=== PATIENT | female | born 1950 | race Caucasian/White ===

== ENCOUNTER → 2016-03-20 | Outpatient (CLI) | payer MEDICARE, OTHER ==
--- NOTE | 2016-03-20 11:43 | ECHOS ---
DATE OF SERVICE: 03/20/2016 AGE: 65Y SEX: F HT: 65 WT: 200 lbs. Protocol William: X Others: Stress Echo Stage: II Dur. of Exercise: 5 minutes *Heart Rate Blood Pressure *Rest: 82 Rest: 158/77 * *Max. Achieved: 138 Maximum BP: 197/38 85% PMHR: 131 100% PMHR: 154 *METS: 6.7 INDICATIONS: Dyspnea. MEDICATIONS: Aspirin. Baseline EKG revealed normal sinus rhythm without significant ST-T changes. Patient walked on standard William protocol for 5 minutes, achieved a maximal heart rate of 138 beats per minute, which is more than 85% of predicted maximum. She developed fatigue and shortness of breath, but did not have any angina. EKG revealed some baseline artifact, rare PVCs but there was no evidence of any ST segment changes to indicate ischemia. By EKG criteria, this is considered as a negative stress test with limited exercise capacity. Baseline echo images reveal normal wall motion and wall thickening of all segments. At peak exercise, there was good augmentation of left ventricular wall motion and wall thickening of all segments suggesting that there is no evidence of any stress-induced ischemia on this study. IMPRESSION: 1. Limited exercise capacity with a negative stress test by EKG criteria. 2. Normal stress echocardiogram.
== END | disposition home or self-care (01) ==
LOC: RADNMMAIN 09:23
PROVIDERS: ATTEND Family Medicine
DX: R06.00 Dyspnea, unspecified (principal)
CPT/HCPCS: 93017; 93350

== ENCOUNTER → 2016-03-22 | Outpatient (CLI) | payer MEDICARE, OTHER ==
--- NOTE | 2016-03-22 19:04 | CONS ---
DATE OF CONSULTATION: 03/22/2016 CONSULTATION/NEW PATIENT EVALUATION A 65-year-old lady, who has been evaluated to the [facility] for possible obstructive sleep apnea-hypopnea syndrome. HISTORY OF PRESENT ILLNESS/SLEEP-WAKE EVALUATION: SLEEP SCHEDULE: Patient's usual sleep schedule from around 9:00 to 11:00 p.m. to 7:00 to 8:00 a.m. FALLING ASLEEP: She does not have problems with falling asleep. She feels that her bed is uncomfortable sometimes, too hot. She may have pain in her body. She has TV set in bedroom. DURING SLEEP: She usually sleeps on the side or stomach position. She snores, has been told about episodes of stopped breathing during sleep. DURING THE DAY/WAKE STATE: She wakes up from sleep up to 6 times with choking, nocturia, dry mouth, grinding teeth and episodes of palpitations, heartburn, restless leg, gasping for air. In the morning she wakes up tired, has difficulties to pay attention, falling asleep during the day, has problems with memory, concentration, irritability, depression, anxiety, claustrophobia and sexual dysfunction. [place] Sleepiness Scale increased to 15. PAST MEDICAL HISTORY: Positive for pain in multiple joints, swelling of legs, acid reflux. PAST SURGICAL HISTORY: , cholecystectomy. MEDICATIONS: MiraLAX, Ex-Lax, vitamin D supplement, Biotin supplement, baby aspirin, ibuprofen, Restasis, Lasix, Prilosec. SOCIAL HISTORY: Positive for smoking up to 3 packs a day for 40 years; quit about one year ago. Alcohol consumption none. REVIEW OF SYSTEMS: Positive for swelling of the legs, pain in the old joints, multiple awakenings from sleep, sleepiness during the day. According to the patient after she stopped smoking about one year ago she increased her weight around 60 pounds. No fevers. No double vision. No recent chest pain. No shortness of breath. No abdominal pain. No bleeding episodes. No blood in urine. No seizure episodes. FAMILY HISTORY: Arthritis, sinus headaches, lung problems, pneumonia, insomnia, acid reflux, ulcers, nasal polyps, restless legs. PHYSICAL EXAMINATION: GENERAL: During physical exam, a 65-year-old lady without distress. VITAL SIGNS: BP 132/71, HR 76, RR 16. Height 5 foot 4, weight 203, body mass index 34.8. Temperature 97.1. Oxygen saturation at room air 97%. HEENT: PERRLA, EOMI. Evaluation of oropharynx showed moderately low position of soft palate, short distance between soft palate and posterior pharyngeal wall, thin uvula, some restriction of nasal breathing. NECK: Supple. No JVD. Thyroid is not palpable. LUNGS: Clear to percussion and to auscultation. Good air exchange. No wheezing or rhonchi. HEART: S1, S2 regular. No murmurs, gallops or rubs. ABDOMEN: Soft and nontender. Bowel sounds are present. No organomegaly appreciated. EXTREMITIES: 1+ bilateral ankle edema, painful during palpation. Hands, also some ulnar deviation of fingers. SPOT REMOVER: Awake, alert, and oriented x3. Cranial nerves 2 to 7 intact. There is no fasciculation or atrophy noted. No focal deficits observed. IMPRESSION: 1. Snoring, witnessed episodes of stopped breathing during this sleep, multiple awakenings from sleep, excessive daytime sleepiness, possible obstructive sleep apnea-hypopnea syndrome. 2. Obesity, body mass index 34.8. 3. Pain in the joints, some ulnar deviation, polyarthritis. 4. Swelling of the legs. 5. Acid reflux. 6. Status post cholecystectomy. 7. Status post section. 8. History of more than 100 packs-year smoking, possible chronic obstructive pulmonary disease. PLAN: 1. Polysomnography for evaluation of patient's breathing during sleep. 2. CPAP/BiPAP titration if sleep study confirms obstructive sleep apnea-hypopnea syndrome. 3. Preferable position during sleep on the side. 4. No driving if patient feels any sleepiness. Patient is aware of civil and criminal liability for unsafe driving. 5. I will see patient for follow-up visit to explain results of the testing and following plan. Thank you very much for referring this patient for consultation. Sincerely, Ari Torres MD, PhD, FAASM. Diplomat of [place], Sleep Medicine Board by [place] [place] [employer] Agricultural Research Technician of [facility] [place]
== END | disposition home or self-care (01) ==
CPT/HCPCS: 99211

== ENCOUNTER → 2016-04-12 | Outpatient (CLI) | payer MEDICARE, OTHER ==
[~2016-04-12] MED LIST: DENOSUMAB 60 MG/ML 1 ML SYRINGE SQ ONE
[2016-04-12 14:13] VITALS: BP 111/66; PULSE 78; RESP 20; TEMP 98.4
== END | disposition home or self-care (01) ==
LOC: PROCWHC3 13:29
PROVIDERS: ATTEND Family Medicine
DX: M81.0 Age-related osteoporosis without current pathological fracture (principal)
CPT/HCPCS: 96372; J0897

== ENCOUNTER → 2016-05-01 | Outpatient (CLI) | payer MEDICARE, OTHER ==
[2016-05-01 13:12] LABS: Bilirubin, Delta 0.2 mg/dL (0.0-0.2); Total Bilirubin 0.4 mg/dL (0.2-1.3); Total Protein 8.2 g/dL (6.3-8.2)
[2016-05-02 16:53] LABS: Hepatits C Virus RNA, Quant <12 IU/mL (<12); LOG HCV IU/mL <1.08 (<1.08)
== END ==
LOC: LABWHC1 12:21
DX: B18.2 Chronic viral hepatitis C (principal)
CPT/HCPCS: 36415; 80076; 82105; 87522

== ENCOUNTER → 2016-06-21 | Outpatient (CLI) | payer MEDICARE, OTHER ==
--- NOTE | 2016-06-21 12:40 | PN ---
DATE OF SERVICE: 06/21/2016 A 65-year-old lady who has been followed in the Sleep Center for treatment of obstructive sleep apnea-hypopnea syndrome. Recently patient had a home sleep apnea test and CPAP titration and I discussed results of the sleep studies with patient in detail. She has moderate obstructive sleep apnea with apnea-hypopnea index of 14 and oxygen desaturation of 71% on full control with CPAP. I checked her CPAP unit. It demonstrated the patient using equipment 100% of the time more than 4 hours with average usage 7.2 hours. Pressure is 8 cm of water. Leak is up to 12 L/min, which is acceptable. Apnea-hypopnea index from reading of the machine is only 1.8. Patient indicated that her sleep is normalized with CPAP. She does not wake up as before. Sometimes patient has movements during the night, but she does not wake up from sleep relating to her leg movements. I indicated that because during titration, we found that patient had severe periodic limb movements with some arousals but we do not have information from her diagnostic night because it was done at home sleep apnea test. MEDICATIONS: MiraLax, ibuprofen, Restasis, Lasix, Prilosec. During physical exam, patient in no distress. BP 121/51, HR 62, RR 16. Weight 204. Temp 96.7. Oxygen saturation at room air 96%. Oropharynx extremely low position of soft palate. ABDOMEN: Obese. 1+ swelling of the ankles. NECK: Supple. No JVD, Thyroid is not palpable. LUNGS: Clear to percussion and to auscultation. Good air exchange. No wheezing or rhonchi. HEART: S1, S2 regular. No murmurs, gallops, or rubs. 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 Cranial nerves 2 to 7 intact. There is no fasciculation or atrophy noted. No focal deficits observed. IMPRESSION: 1. Obstructive sleep apnea-hypopnea syndrome on full control with CPAP. Patient demonstrated 100% compliance with treatment, benefiting from treatment. 2. Severe periodic limb movements during titration, but presently patient does not wake up from sleep with relationship to leg movements. 3. Polyarthritis. 4. Swelling of the legs. 5. Acid reflux. 6. Status post cholecystectomy. 7. Status post section. 8. History of more than ( ) pack-year of smoking. PLAN: 1. Patient will continue to use her with CPAP equipment with the same regimen every night for the whole night. 2. Losing weight. 3. Sleep hygiene with regular time in bed for at least 8 hours. 4. No driving if feeling any sleepiness. Thank you very much for allowing me to participate in the management of your patient. Sincerely, Ari Torres MD, PhD, FAASM Diplomat of [employer], Sleep Medicine Board by [employer] Line Erector of [facility]
== END | disposition home or self-care (01) ==
LOC: SLEEP 10:31
PROVIDERS: ATTEND Internal Medicine
DX: G47.33 Obstructive sleep apnea (adult) (pediatric) (principal); M13.0 Polyarthritis, unspecified; M79.89 Other specified soft tissue disorders; K21.9 Gastro-esophageal reflux disease without esophagitis; Z98.890 Other specified postprocedural states; F17.200 Nicotine dependence, unspecified, uncomplicated; Z79.899 Other long term (current) drug therapy

== ENCOUNTER → 2016-10-15 | Outpatient (CLI) | payer MEDICARE, OTHER | END | disposition home or self-care (01) | LOC: LABWHC1 11:51 | PROVIDERS: ATTEND Psychiatry & Neurology Neurology | DX: H02.403 Unspecified ptosis of bilateral eyelids (principal) | CPT/HCPCS: 36415 ==

== ENCOUNTER → 2016-10-18 | Outpatient (CLI) | payer MEDICARE, OTHER ==
[2016-10-18 15:29] LABS: ALT 30 U/L (9-52); AST 29 U/L (14-36)
== END | disposition home or self-care (01) ==
LOC: LABWHC1 14:51
PROVIDERS: ATTEND Podiatrist Foot & Ankle Surgery
DX: K74.60 Unspecified cirrhosis of liver (principal)
CPT/HCPCS: 36415; 84450; 84460

== ENCOUNTER 2016-11-08 08:30 | Day surgery (SDC) | payer MEDICARE, OTHER ==
[2016-10-31 08:39] VITALS: BMI 33.3
[~2016-11-08 08:30] MED LIST changes: -DENOSUMAB 60 MG/ML 1 ML SYRINGE SQ ONE; +DEXAMETHASONE SOD PHOSPHATE 10 MG/ML 1 ML VIAL IV ONE; +FAMOTIDINE 20 MG/2 ML VIAL IV ONE; +LACTATED RINGERS 1,000 ML IV SCH; +LIDOCAINE 1% 20 ML VIAL (10MG/ML) FOR IV START INTRADERMA PRN; +Pre Op ABX Message 1 EACH MISC MISCELLANE ONE; +SCOPOLAMINE 1.5MG/72HR PATCH TRANSDERM ONE
[2016-11-08] MEDS: ONDANSETRON 4 MG/2 ML VIAL IVP ONE ×3 (11:38→14:21)
[2016-11-08] MEDS ORDERED: PROPOFOL 10 MG/ML 20 ML VIAL IV ONE (11:41)
[2016-11-08] MEDS ORDERED: LIDOCAINE 1% INJ 10MG/ML (20 ML MDV) ONE (11:41)
[2016-11-08] MEDS ORDERED: fentaNYL (PF) 50 MCG/ML 2 ML AMP ONE (11:41)
[2016-11-08] MEDS ORDERED: SUCCINYLCHOLINE CHLORIDE 100 MG/5 ML SYR IV ONE (11:41)
[2016-11-08] MEDS ORDERED: BUPIVACAINE-EPI 0.5%-1:200,000 10 ML VIAL SQ ONE ×2 (12:15)
[2016-11-08] MEDS ORDERED: CIPROFLOXACIN-DEXAMETH 0.3-0.1% DROPS 7.5 ML BTL BOTH EARS ONE (12:15)
[2016-11-08] MEDS ORDERED: LIDOCAINE 2%-EPI 1:100,000 20 ML VIAL SQ ONE ×2 (12:16)
[2016-11-08] MEDS ORDERED: EPINEPHrine 1 MG/ML (MDV) 30 ML VIAL IRRIGATION ONE (12:24)
[2016-11-08] MEDS ORDERED: FLUORESCEIN STRIPS 1 MG STRIP MISCELLANE ONE (12:25)
[2016-11-08] MEDS: HYDROmorphone 1 MG/ML 1 ML SYRINGE IVP PRN ×5 (12:56→13:25)
--- NOTE | 2016-11-08 13:03 | P.OP ---
Date of Procedure: 11/08/16 Preoperative Diagnosis: Bilateral eustachian tube dysfunction Chronic otitis media with effusion bilaterally Conductive hearing loss Hypertrophy of inferior nasal turbinates Postoperative Diagnosis: same Procedure(s) Performed: Bilateral direct microscopic tympanostomy and tube placement Bilateral endoscopic balloon eustachian tuboplasty Bilateral inferior submucosal resection of the inferior turbinates posteriorly and outfracture Implants: Anesthesia: ARTUROA Surgeon: Orlando Ryan Estimated Blood Loss (ml): 0 Pathology: none sent Condition: stable Disposition: PACU Indications for Procedure: This patient has suffered from chronic ear issues with chronic middle ear effusion hearing loss etc. she also has a chronic globus pharyngeus and after she failed medical therapy with nasal spray Celebrex etc. we've decided to proceed forward with tympanostomy and tube placement along with a balloon eustachian tuboplasty is she's had chronic ear problems all of her life and in addition a submucosal resection and outfracture of the posterior inferior turbinates that's causing congestion and blockage around the eustachian tube. All risks, benefits, and alternative therapies were discussed in detail. Consent was obtained and all questions were answered. Operative Findings: Patient had a bilateral middle ear effusion Large obstructive inferior turbinates posteriorly Inflammation around the eustachian tube orifices bilaterally Description of Procedure: Prior to surgery, all risks, benefits, and alternative therapies were discussed again with the patient and family. Risks of bleeding, need for second tubes, perforation, early extrusion of tubes, etc. etc. were explained. All questions were answered and a consent was obtained. This patient was taken to the operative room and placed in the supine position. Mask inhalation anesthesia was performed by the department of anesthesia. The patient was monitored throughout the entire case by the department of anesthesia. Both tympanic membranes were visualized with an operating Zeiss microscope. Cerumen and epithelial debris was removed from the external auditory canals bilaterally. The tympanic membranes were visualized under an operative microscope. Tympanostomy incisions were made inferiorly. Fluid was suctioned from the middle ear space with use of a #3 and #5 Li suction with care to avoid any trauma to the middle ear structures. Ventilation tubes were then inserted bilaterally. Excellent placement was obtained. We then went intranasally with use of an endoscope and anesthetized the posterior portion of both inferior turbinates. We utilized lidocaine 1% with epinephrine 1 100,000. We entered the inferior turbinates with the microdebrider and I remove bone and submucosal elements from the posterior portion of the inferior turbinates bilaterally. A portion then underwent outfracture compression bilaterally. After the turbinates underwent a submucosal resection bilaterally and outfracture there is causing blockage to the eustachian tube orifice. We inserted a guidewire the followed by a balloon and dilated the eustachian tube bilaterally to a level of 10 for a minute. This was repeated 3 times. Patient tolerated this well and follow-up will be in the office in 1 week for recheck. No packing was required. The patient was then taken to the recovery room in excellent condition by the department of anesthesia and monitored through the recovery process by the recovery room nurse supervised by anesthesia. A follow-up appointment has been scheduled.
[2016-11-08 13:05] VITALS: TEMP 97.3
[2016-11-08 13:10] VITALS: RESP 16
--- NOTE | 2016-11-08 13:41 | XR ---
EXAMINATION TYPE: XR chest 1V portable DATE OF EXAM: 11/08/2016 HISTORY: Shortness of breath. COMPARISON: 06/11/2014 TECHNIQUE: Single view of the chest is submitted. FINDINGS: Right IJ central venous line demonstrates its distal tip within the right atrium. No evidence for pne umothorax. Demonstrated are scattered senescent parenchymal change. There is no evidence for focal infiltrate. The heart is stable. Hilar and mediastinal structures are within normal limits. Fixed hiatal hernia detected. Degenerative changes are seen of the dorsal spine. IMPRESSION: 1. Chronic changes without evidence for acute pulmonary disease. Central venous line as noted.
[2016-11-08 14:40] LABS: Glucose,Whole Blood 150 mg/dL (75-99)
[2016-11-08 15:48] VITALS: BP 108/54; PULSE 47
--- NOTE | 2016-11-16 12:34 | OP ---
OPERATIVE REPORT OPERATIVE NOTE ADDENDUM: DATE OF SERVICE: 11/08/2016 OPERATIVE NOTE ADDENDUM: This patient also underwent a direct microscopic laryngoscopy with biopsy. PREOPERATIVE DIAGNOSIS: Globus pharyngeus dysphagia. POSTOPERATIVE DIAGNOSIS: Globus pharyngeus dysphagia. OPERATIVE PROCEDURE: A direct microscopic laryngoscopy and biopsy of the post cricoid space. PROCEDURE: This patient had a tooth guard was placed and an laryngoscope was placed into the patient's mouth with care to avoid any trauma to the lips, teeth, gums and tongue. Mouth was opened and tongue was depressed and the entire and hypopharynx was evaluated including the base of tongue, vallecula, epiglottis, true and false, post cricoid space, piriformis sinus lateral pharynx etc. There was some inflammation along the post cricoid area, which was biopsied. The rest of the examination was unremarkable. All instrumentation was removed. This was done under microscopic visualization. We utilized a Zeiss microscope with variable fixed focal length for the biopsy and examination. MMODL / IJN: [id number] /
== END 2016-11-08 14:06 | disposition home or self-care (01) ==
LOC: OR 08:30
PROVIDERS: ATTEND Otolaryngology
DX: Z87.891 Personal history of nicotine dependence (principal); H65.493 Other chronic nonsuppurative otitis media, bilateral; H69.93 Unspecified Eustachian tube disorder, bilateral; H90.2 Conductive hearing loss, unspecified; J34.3 Hypertrophy of nasal turbinates; E78.5 Hyperlipidemia, unspecified; J44.9 Chronic obstructive pulmonary disease, unspecified; K21.9 Gastro-esophageal reflux disease without esophagitis; Z86.19 Personal history of other infectious and parasitic diseases; G47.30 Sleep apnea, unspecified; E66.9 Obesity, unspecified; Z68.33 Body mass index [BMI] 33.0-33.9, adult; Z79.82 Long term (current) use of aspirin; Z79.1 Long term (current) use of non-steroidal anti-inflammatories (NSAID); Z79.899 Other long term (current) drug therapy; Z88.1 Allergy status to other antibiotic agents; Z88.0 Allergy status to penicillin; Z88.2 Allergy status to sulfonamides; Z88.8 Allergy status to other drugs, medicaments and biological substances
CPT/HCPCS: 71010; 69436; 30140; J0171; J1100; J2405; J2001; J3010; J1170; J0330; J2704; 88305

== ENCOUNTER → 2016-12-04 | Outpatient (CLI) | payer MEDICARE, OTHER ==
[2016-12-04 11:11] LABS: Magnesium 1.8 mg/dL (1.6-2.3)
== END | disposition home or self-care (01) ==
LOC: LABWHC1 10:14
PROVIDERS: ATTEND Otolaryngology
DX: R53.83 Other fatigue (principal)
CPT/HCPCS: 36415; 82607; 83735

== ENCOUNTER → 2017-01-17 | Outpatient (CLI) | payer MEDICARE, OTHER ==
[2017-01-17 13:50] LABS: AST 34 U/L (14-36)
[2017-01-17 13:51] LABS: ALT 25 U/L (9-52)
== END | disposition home or self-care (01) ==
LOC: LABWHC1 12:30
PROVIDERS: ATTEND Podiatrist Foot & Ankle Surgery
DX: K74.60 Unspecified cirrhosis of liver (principal)
CPT/HCPCS: 36415; 84450; 84460

== ENCOUNTER → 2017-07-04 | Outpatient (CLI) | payer MEDICARE, OTHER ==
--- NOTE | 2017-07-04 14:40 | SFUN ---
SLEEP CENTER FOLLOW UP NOTE DATE OF SERVICE: 07/04/2017 66-year-old lady has been followed in the Sleep Center for treatment of obstructive sleep apnea-hypopnea syndrome. Last time I saw patient about 1 year ago and at that time she used her CPAP equipment every night for the whole night. Presently, she was not able to use her CPAP because she has had several surgeries including nose surgery, ear surgery, cataract surgery, and also she had pneumonia. I checked her CPAP unit. CPAP pressure is 6 cm of water, which was recommended to before. The patient has concerns about cleaning her CPAP unit because she had pneumonia and she wanted to be sure that her machine is clean. MEDICATIONS: Ibuprofen, Restasis, Lasix. PHYSICAL EXAM: GENERAL Patient in no distress VITAL SIGNS BP 114/67, HR 72, RR 16, height 5 feet 4 inches, weight 190 pounds, which is 14 pounds less than during the last visit, BMI 32.6, temperature 99.8, oxygen saturation room air 95%. HEENT PERRLA, EOMI, evaluation of oropharynx showed extremely low position of soft palate. NECK Supple, no JVD. Thyroid is not palpable. LUNGS Clear to percussion and to auscultation. Good air exchange. No wheezing or rhonchi. HEART S1, S2 regular. No murmurs, gallops, or rubs. ABDOMEN Slightly obese. Soft and nontender. Bowel sounds are present. No organomegaly appreciated. EXTREMITIES No clubbing or cyanosis. 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 Cranial nerves 2 to 7 intact. There is no fasciculation or atrophy. noted. No focal deficits observed. IMPRESSION: 1. Obstructive sleep apnea-hypopnea syndrome, apnea-hypopnea index 14 with oxygen desaturation to 71%. 2. Status post nose surgery. 3. Status post ear surgery. 4. Status post cataract surgery bilaterally. 5. History of pneumonia. 6. History of polyarthritis. 7. History of acid reflux. 8. Status post cholecystectomy. 9. Status post . 10.History of smoking for about 40 years, quit June 23, 2014. PLAN: 1. I wrote patient prescription for cleaning equipment of her machine. 2. Patient will start to use her CPAP equipment every night for the whole night. 3. We discussed that she should keep her tube and heated humidifier dry after she finished to use machine in the morning. 4. Losing weight. 5. Sleep hygiene with regular time in bed for at least 8 hours. 6. No driving if feeling sleepiness. Thank you very much for allowing me to participate in management of your patient. Sincerely, Ari Torres MD, PhD, FAASM Diplomat of [place] [employer] Can Conveyor Feeder of [facility] [place] MMODL / RLN: [id number] /
== END | disposition home or self-care (01) ==
LOC: SLEEP 13:33
PROVIDERS: ATTEND Internal Medicine
DX: G47.33 Obstructive sleep apnea (adult) (pediatric) (principal); K21.9 Gastro-esophageal reflux disease without esophagitis; Z99.89 Dependence on other enabling machines and devices; Z79.1 Long term (current) use of non-steroidal anti-inflammatories (NSAID); Z79.899 Other long term (current) drug therapy; Z98.890 Other specified postprocedural states; Z87.01 Personal history of pneumonia (recurrent); Z87.39 Personal history of other diseases of the musculoskeletal system and connective tissue; Z90.49 Acquired absence of other specified parts of digestive tract; Z87.891 Personal history of nicotine dependence